=== PATIENT | male | born 1950 | race Caucasian/White ===

== ENCOUNTER → 2016-12-29 | Outpatient (CLI) | payer OTHER | LOC: HEART CORB 13:30 | DX: C18.4 Malignant neoplasm of transverse colon (principal); C78.6 Secondary malignant neoplasm of retroperitoneum and peritoneum; C67.1 Malignant neoplasm of dome of bladder; C78.7 Secondary malignant neoplasm of liver and intrahepatic bile duct; Z79.899 Other long term (current) drug therapy ==